=== PATIENT | female | born 1995 | race Caucasian/White ===

== ENCOUNTER 2017-12-07 00:25 | Emergency (ER) | payer MEDICAID ==
--- NOTE | 2017-12-07 02:22 | ED Physician Documentation ---
History of Present Illness - Stated complaint Stated Complaint: FEVER - Chief complaint Chief Complaint: General - History obtained from History obtained from: Patient - History of Present Illness Timing: How many days ago (2-3) Improved by: no ameliorating factors Worsened by: ONEAL worsened by coughing - Additonal information Additional information: c/o 2-3 days of body aches, ONEAL, sinus congestion, cough. her s.o. has same symptoms (and is currently registered in this ED for same) Review of Systems Constitutional: reports: Chills, Myalgias, Sweats. denies: Fever Ears: denies: Ear pain Nose: reports: Congestion, Sinus pressure / pain Throat: denies: Sore throat Respiratory: reports: Cough : denies: Dysuria, Frequency PD PAST MEDICAL HISTORY - Past Medical History Respiratory: Asthma - Past Surgical History Past Surgical History: No - Present Medications Home Medications: Ambulatory Orders Medication Instructions Recorded Confirmed Albuterol [Ventolin Hfa] 2 puffs INH Q4H PRN #1 inhaler 08/10/13 01/16/15 Azithromycin [Zithromax] 250 mg PO DAILY #4 tablet 12/07/17 predniSONE [Prednisone] 40 mg PO DAILY #6 tablet 12/07/17 - Allergies Allergies/Adverse Reactions: Allergies Allergy/AdvReac Type Severity Reaction Status Date / Time No Known Drug Allergies Allergy Verified 12/07/17 00:34 - Social History Does the pt smoke?: No Smoking Status: Never smoker Does the pt drink ETOH?: No Does the pt have substance abuse?: No - Immunizations Immunizations are current?: Yes - POLST Patient has POLST: No PD ED PE NORMAL - Vitals Vital signs reviewed: Yes - General General: Alert and oriented X 3, No acute distress, Well developed/nourished - HEENT HEENT: Ears normal, Moist mucous membranes, Pharynx benign - Neck Neck: Supple, no meningeal sign - Cardiac Cardiac: RRR, No murmur - Respiratory Respiratory: No respiratory distress, Clear bilaterally Results - Vitals Vitals: Oxygen O2 Source Room air PD MEDICAL DECISION MAKING - ED course Complexity details: considered differential, d/w patient - Sepsis Event Vital Signs: Oxygen O2 Source Room air Departure - Departure Disposition: 01 Home, Self Care Clinical Impression: Bronchitis Sinusitis Qualifiers: Sinusitis location: unspecified location Chronicity: acute Recurrence: not specified as recurrent Qualified Code(s): J01.90 - Acute sinusitis, unspecified Condition: Good Instructions: ED Upper Resp Infec Abx Tx, ED Sinusitis Abx Tx Prescriptions: Azithromycin [Zithromax] 250 mg PO DAILY #4 tablet predniSONE [Prednisone] 40 mg PO DAILY #6 tablet Forms: Activity restrictions Discharge Date/Time: 12/07/17 03:10
[2017-12-07] MEDS ORDERED: AZITHROMYCIN 250 MG TABLET PO STA (02:40)
[2017-12-07] MEDS ORDERED: DEXAMETHASONE 10 MG/ML VIAL PO STA (02:40)
[2017-12-07 04:47] VITALS: BP 131/74
== END 2017-12-07 03:10 | disposition home or self-care (01) ==
LOC: ED 00:25
DX: J01.90 Acute sinusitis, unspecified (principal); J40 Bronchitis, not specified as acute or chronic
CPT/HCPCS: 99283; A9270

== ENCOUNTER 2018-06-18 12:00 | Emergency (ER) | payer MEDICAID ==
[2018-06-18 15:57] VITALS: BP 150/79
[2018-06-18] MEDS ORDERED: BENZOCAINE/MENTHOL LOZENGE MM STA (16:31)
[2018-06-18] MEDS ORDERED: BENZONATATE 100 MG CAPSULE PO STA (16:31)
[2018-06-18] MEDS ORDERED: DEXAMETHASONE 10 MG/ML VIAL PO STA (16:31)
--- NOTE | 2018-06-18 16:36 | ED Physician Documentation ---
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 denies: Fever Nose: reports: Congestion Throat: reports: Sore throat Respiratory: reports: Cough GI: reports: Vomiting Neurologic: reports: Headache Endocrine: denies: Easy bruising / bleeding Immunocompromised: denies: Immunocompromised PD PAST MEDICAL HISTORY - Past Medical History Past Medical History: No Cardiovascular: None Respiratory: Asthma Neuro: None Endocrine/Autoimmune: None GI: None RODBUSTER: None : None HEENT: None Psych: None Musculoskeletal: None Derm: None - Past Surgical History Past Surgical History: No - Present Medications Home Medications: Ambulatory Orders Medication Instructions Recorded Confirmed Albuterol [Ventolin Hfa] 2 puffs INH Q4H PRN #1 inhaler 08/10/13 01/16/15 Azithromycin [Zithromax] 250 mg PO DAILY #4 tablet 12/07/17 predniSONE [Prednisone] 40 mg PO DAILY #6 tablet 12/07/17 Benzonatate [Tessalon Perle] 100 mg PO TID PRN #20 capsule 06/18/18 Dextromethorphan/Benzocaine 1 each PO Q4H PRN #20 lozenge 06/18/18 [Cepacol Sorethroat-Cough Santana] Fluticasone [Flonase] 1 sprays SHERIE BID #1 bottle 06/18/18 - Allergies Allergies/Adverse Reactions: Allergies Allergy/AdvReac Type Severity Reaction Status Date / Time No Known Drug Allergies Allergy Verified 06/18/18 12:22 - Social History Does the pt smoke?: No Smoking Status: Never smoker Does the pt drink ETOH?: Yes Does the pt have substance abuse?: Yes Substance Use and Type: Marijuana - Immunizations Immunizations are current?: Yes - POLST Patient has POLST: No PD ED PE NORMAL - Vitals Vital signs reviewed: Yes - HEENT HEENT: Ears normal, Moist mucous membranes. No: Pharynx benign (enlarge erythematous tonsils with exudate) - Neck Neck: Supple, no meningeal sign - Cardiac Cardiac: RRR - Respiratory Respiratory: No respiratory distress, Clear bilaterally - Abdomen Abdomen: Soft, Non tender - Derm Derm: Normal color - Neuro Neuro: Alert and oriented X 3 Results - Vitals Vitals: Vital Signs - 24 hr 06/18/18 06/18/18 12:18 15:56 Temperature 36.4 C L Heart Rate 86 88 Respiratory 18 20 Rate Blood Pressure 122/73 150/79 H O2 Saturation 98 98 Oxygen O2 Source Room air - Labs Labs: Laboratory Tests 06/18/18 06/18/18 12:27 12:27 Influenza A (Rapid) Negative Influenza B (Rapid) Negative Group A Strep Rapid Negative Departure - Departure Disposition: Home, Self Care Clinical Impression: Viral syndrome Condition: Good Instructions: ED Viral Syndrome Prescriptions: Benzonatate [Tessalon Perle] 100 mg PO TID PRN #20 capsule PRN Reason: Cough Dextromethorphan/Benzocaine [Cepacol Sorethroat-Cough Santana] 1 each PO Q4H PRN #20 lozenge PRN Reason: sore throat cough Fluticasone [Flonase] 1 sprays SHERIE BID #1 bottle Comments: The flu swabs were again negative You already had a chest xray that did not show pneumonia The rapid strep was negative too - an official throat culture will be run and the ER staff will call you if it is positive and you need antibiotics I have prescribed medication to ease symptoms. And written a note for work Please get your blood pressure rechecked when you feel better Forms: Activity restrictions
[2018-06-18] MEDS ORDERED: CHERRY SYRUP 10 ML UDC PO ONE (16:40)
== END 2018-06-18 16:47 | disposition home or self-care (01) ==
LOC: ED 12:00
DX: B34.9 Viral infection, unspecified (principal)
CPT/HCPCS: 87070; 87275; 87276; 87430; 99283; A9270

== ENCOUNTER 2021-04-15 14:29 | Emergency (ER) | payer MEDICAID ==
[2021-04-15] MEDS ORDERED: SODIUM CHLORIDE 0.9% 1,000 ML IV STA (15:03)
[2021-04-15] MEDS ORDERED: ONDANSETRON 4 MG/2 ML VIAL IVP STA (15:16)
[2021-04-15] MEDS ORDERED: HYDROmorphone 1 MG/ML CARPUJECT IVP STA (15:16)
--- NOTE | 2021-04-15 15:20 | ED Physician Documentation ---
History of Present Illness - Stated complaint Stated Complaint: FEVER/VOMITING - Chief complaint Chief Complaint: Abd Pain - Additonal information Additional information: 25-year-old female presents emergency department for evaluation of 2 weeks intermittent high fever as well as 1 week periumbilical abdominal pain with nausea and vomiting. She is not yet vaccinated for COVID-19. She reports that about 2 weeks ago she began having a minor cough with low-grade fevers however over the last week she began having periumbilical pain with vomiting. Denies any dysuria urgency or frequency. No diarrhea. T-max 101.9 yesterday afternoon. No pertinent past surgical history. Past medical history significant only for asthma for which she takes but desonide as well as albuterol. Reports her son has been sick with what she thinks is the common cold. Denies any tobacco or alcohol use. Review of Systems Constitutional: reports: Fever, Myalgias, Fatigue Eyes: reports: Reviewed and negative Ears: reports: Reviewed and negative Nose: reports: Rhinorrhea / runny nose, Congestion Throat: reports: Reviewed and negative Cardiac: denies: Chest pain / pressure, Palpitations, Pedal edema, Calf pain Respiratory: denies: Dyspnea, Cough, Hemoptysis, Wheezing GI: reports: Abdominal Pain, Nausea, Vomiting. denies: Diarrhea, Hematemesis, Bloody / black stool : denies: Dysuria, Frequency, Hesitancy Skin: denies: Rash, Lesions Musculoskeletal: denies: Neck pain, Back pain, Extremity pain Neurologic: reports: Reviewed and negative PD PAST MEDICAL HISTORY - Past Medical History Cardiovascular: None Respiratory: Asthma Neuro: None Endocrine/Autoimmune: None GI: None NITROGLYCERIN DISTRIBUTOR: None : None HEENT: None Psych: None Musculoskeletal: None Derm: None - Past Surgical History Past Surgical History: No - Present Medications Home Medications: Ambulatory Orders Medication Instructions Recorded Confirmed Albuterol [Ventolin Hfa] 2 puffs INH Q4H PRN #1 inhaler 08/10/13 04/15/21 Cefpodoxime Proxetil [Vantin] 100 mg PO Q12H #14 tablet 04/15/21 Ondansetron Odt [Zofran] 4 mg TL Q6H PRN #10 tablet 04/15/21 - Allergies Allergies/Adverse Reactions: Allergies Allergy/AdvReac Type Severity Reaction Status Date / Time No Known Drug Allergies Allergy Verified 04/15/21 14:33 - Social History Does the pt smoke?: No Smoking Status: Never smoker Does the pt drink ETOH?: Yes Does the pt have substance abuse?: Yes - Immunizations Immunizations are current?: Yes - POLST Patient has POLST: No PD ED PE EXPANDED - General General: Alert, Other (appears ill appearing) - Neck Neck: Supple w/out meningeal sx. No: Adenopathy - Cardiac Cardiac: Regular Rate, Radial strong equal, Cap refill < 2 sec, Prolonged cap refill. No: Murmur Present - Respiratory Respiratory: Clear to ausultation stephanie. No: Distress, Labored - Abdomen Abdomen: Normal Bowel sounds, Tender to palpation, Periumbilical (Periumbilical abdominal pain without guarding or rebound. Negative Ramirez's negative McBurney's. No flank or CVA tenderness elicited.) - Derm Derm: Normal color, Warm and dry. No: Rash - Neuro Neuro: Alert and Oriented X 3, CNII-XII intact - GCS Eye Opening: Spontaneous Motor: Obeys Commands Verbal: Oriented Total: 15 Results - Vitals Vitals: Vital Signs - 24 hr 04/15/21 04/15/21 04/15/21 14:34 14:48 15:18 Temperature 37.8 C 37.5 C 37.5 C Heart Rate 110 H 104 H 98 Respiratory 16 16 16 Rate Blood Pressure 130/66 116/60 125/75 O2 Saturation 96 99 99 04/15/21 04/15/21 04/15/21 15:30 16:00 16:30 Temperature 37.6 C 37.3 C Heart Rate 104 H 94 95 Respiratory 16 16 16 Rate Blood Pressure 115/75 117/64 110/61 O2 Saturation 98 94 96 04/15/21 04/15/21 17:00 17:30 Temperature 37.4 C 37.9 C Heart Rate 95 96 Respiratory 16 16 Rate Blood Pressure 116/64 123/63 O2 Saturation 95 96 Oxygen O2 Source Room air - Labs Labs: Laboratory Tests 04/15/21 04/15/21 04/15/21 14:58 14:58 15:10 WBC 15.8 H RBC 4.45 Hgb 12.9 Hct 39.4 MCV 88.5 MCH 29.0 MCHC 32.7 RDW 12.9 Plt Count 416 MPV 9.8 Neut # (Auto) 12.4 H Lymph # (Auto) 1.9 Pettis # (Auto) 1.3 H Eos # (Auto) 0.0 Baso # (Auto) 0.1 Absolute Nucleated RBC 0.00 Nucleated RBC % 0.0 Sodium Potassium Chloride Carbon Dioxide Anion Gap BUN Creatinine Estimated GFR (MDRD) Glucose Lactic Acid Calcium Total Bilirubin AST ALT Alkaline Phosphatase Total Protein Albumin Globulin Albumin/Globulin Ratio Urine Color YELLOW Urine Clarity HAZY Urine pH 6.0 Ur Specific Henrietta 1.020 Urine Protein TRACE Urine Glucose (UA) NEGATIVE Urine Ketones >=80 H Urine Occult Blood TRACE-INTA Urine Nitrite POSITIVE H Urine Bilirubin NEGATIVE Urine Urobilinogen 0.2 (NORMAL) Ur Leukocyte Esterase TRACE H Urine RBC 6-10 H Urine WBC >25 H Ur Squamous Epith Cells MANY Squamous H Urine Bacteria Many H Urine Culture Comments NOT INDICATED Urine HCG, Qual NEGATIVE Nasal Adenovirus (PCR) Nasal B. parapertussis DNA (PCR) Nasal Coronavir 229E PCR Nasal Coronavir HKU1 PCR Nasal Coronavir NL63 PCR Nasal Coronavir OC43 PCR Nasal Enterovir/Rhinovir PCR Nasal Influenza B PCR Nasal Influenza A PCR Nasal Parainfluen 1 PCR Nasal Parainfluen 2 PCR Nasal Parainfluen 3 PCR Nasal Parainfluen 4 PCR Nasal RSV (PCR) Nasal B.pertussis DNA PCR Nasal C.pneumoniae (PCR) Gibran Human Metapneumo PCR Nasal M.pneumoniae (PCR) Nasal SARS-CoV-2 (PCR) 04/15/21 04/15/21 04/15/21 15:10 15:10 15:10 WBC RBC Hgb Hct MCV MCH MCHC RDW Plt Count MPV Neut # (Auto) Lymph # (Auto) Pettis # (Auto) Eos # (Auto) Baso # (Auto) Absolute Nucleated RBC Nucleated RBC % Sodium 138 Potassium 3.6 Chloride 97 L Carbon Dioxide 26 Anion Gap 15.0 H BUN 12 Creatinine 0.7 Estimated GFR (MDRD) 103 Glucose 93 Lactic Acid 0.9 Calcium 9.4 Total Bilirubin 0.9 AST 19 ALT 30 Alkaline Phosphatase 81 Total Protein 8.5 H Albumin 3.9 Globulin 4.6 H Albumin/Globulin Ratio 0.8 L Urine Color Urine Clarity Urine pH Ur Specific Henrietta Urine Protein Urine Glucose (UA) Urine Ketones Urine Occult Blood Urine Nitrite Urine Bilirubin Urine Urobilinogen Ur Leukocyte Esterase Urine RBC Urine WBC Ur Squamous Epith Cells Urine Bacteria Urine Culture Comments Urine HCG, Qual Nasal Adenovirus (PCR) NOT DETECTED Nasal B. parapertussis DNA (PCR) NOT DETECTED Nasal Coronavir 229E PCR NOT DETECTED Nasal Coronavir HKU1 PCR NOT DETECTED Nasal Coronavir NL63 PCR NOT DETECTED Nasal Coronavir OC43 PCR NOT DETECTED Nasal Enterovir/Rhinovir PCR NOT DETECTED Nasal Influenza B PCR NOT DETECTED Nasal Influenza A PCR NOT DETECTED Nasal Parainfluen 1 PCR NOT DETECTED Nasal Parainfluen 2 PCR NOT DETECTED Nasal Parainfluen 3 PCR NOT DETECTED Nasal Parainfluen 4 PCR NOT DETECTED Nasal RSV (PCR) NOT DETECTED Nasal B.pertussis DNA PCR NOT DETECTED Nasal C.pneumoniae (PCR) NOT DETECTED Gibran Human Metapneumo PCR NOT DETECTED Nasal M.pneumoniae (PCR) NOT DETECTED Nasal SARS-CoV-2 (PCR) NOT DETECTED - Rads (name of study) CT abdomen Radiology: Final report received (Left-sided pyelonephritis. Prominent gallbladder without discrete pathology. Incidental note is made of IUD.) PD MEDICAL DECISION MAKING - ED course Complexity details: reviewed results, re-evaluated patient, d/w patient ED course: 25-year-old female presents emergency department for evaluation of intermittent fevers that have been ongoing for about 2 weeks as well as nausea and vomiting. She began having some periumbilical pain about 1 week ago. She reports to me that it was she was seen at [facility] about 5 days ago but had an unremarkable work-up. Here in the ER today she is noted to have moderate leukocytosis without an elevated lactate. However her urine is grossly suggestive of an infection. Blood cultures are pending. There are no findings of infection in the chest x- ray. Given the intermittent fevers for 2 weeks as well as abdominal pain a CT of the abdomen was completed. It is suggestive of left-sided pyelonephritis. While the patient was here in the emergency department she did receive a call from [facility] telling her that she had grown a page sensitive E. coli. A prescription for Macrobid was sent to the [facility] in [place]. I then called the provider that saw her at the hospital in [place] on Monday and we discussed her. She at that time did not have any findings suggestive of pyelonephritis. At this time I will send a prescription for Cefpodoxime given that was a pansensitive Sathya. I will also send a prescription for Zofran to help with the nausea. Emergent return precautions were discussed for failure of the symptoms to resolve. Departure - Departure Disposition: 01 Home, Self Care Clinical Impression: Pyelonephritis Condition: Stable Record reviewed to determine appropriate education?: Yes Instructions: Pyelonephritis [facility] Prescriptions: Cefpodoxime Proxetil [Vantin] 100 mg PO Q12H #14 tablet Ondansetron Odt [Zofran] 4 mg TL Q6H PRN #10 tablet PRN Reason: Nausea / Vomiting Comments: Lisa you were seen in the emergency department today for abdominal pain, intermittent fevers as well as nausea and vomiting. Today your screening labs do show that you have an infection in your urine. You also have a mildly elevated white blood cell count that is usually seen with infections. A CT of the abdomen however does show that you have an infection around your left kidney. This is called pyelonephritis. In most people that are young and otherwise healthy pyelonephritis can typically be treated as an outpatient. You were given IV fluids as well as a first dose of IV antibiotics here in the ER. I have sent a prescription for an antibiotic called Cefpodoxime to the [facility] in [place]. I have also sent a prescription for some nausea medicine. [facility] has sent a prescription for an antibiotic called Macrobid also known as nitrofurantoin. This is not an appropriate antibiotic in the setting of kidney infection, therefore please do not fill it or take it. I encourage you to stay well-hydrated and drink plenty of fluids. If you find you are having worsening symptoms, persistence of fevers uncontrolled vomiting despite the antibiotics and nausea medicine then please return immediately to the ER for a second evaluation.
--- NOTE | 2021-04-15 15:21 | XRAY Report ---
PROCEDURE: Chest 1 View X-Ray INDICATIONS: fever x 2 weeks TECHNIQUE: One view of the chest was acquired. COMPARISON: None FINDINGS: Surgical changes and devices: None. Lungs and pleura: No pleural effusions or pneumothorax. Lungs are clear. Mediastinum: Mediastinal contours appear normal. Heart size is normal. Bones and chest wall: No suspicious bony lesions. Overlying soft tissues appear unremarkable. IMPRESSION: No acute pulmonary process. Reviewed by: Jenn Sutton MD on 04/15/2021 3:19 PM [facility] Approved by: Jenn Sutton MD on 04/15/2021 3:19 PM [facility] Station ID: [id number]
[2021-04-15 15:27] LABS: BASOPHILS # (AUTO) 0.1 10^3/uL (0.0-0.1); BASOPHILS % (AUTO) 0.5 %; EOSINOPHILS % (AUTO) 0.2 %; HCT - HEMATOCRIT 39.4 % (37.0-47.0); HGB - HEMOGLOBIN 12.9 g/dL (12.0-16.0); LYMPHOCYTES # (AUTO) 1.9 10^3/uL (1.5-3.5); MEAN CORPUSCULAR HGB CONC 32.7 g/dL (32.0-36.0); MEAN CORPUSCULAR VOLUME 88.5 fL (81.0-99.0); MEAN PLATELET VOLUME 9.8 fL (7.9-10.8); MONOCYTES # (AUTO) 1.3 10^3/uL (0.0-1.0); MONOCYTES % (AUTO) 8.1 %; NEUTROPHILS # (AUTO) 12.4 10^3/uL (1.5-6.6); NEUTROPHILS % (AUTO) 78.6 %; PLT - PLATELET COUNT 416 10^3/uL (130-450); RED BLOOD COUNT 4.45 10^6/uL (4.20-5.40); RED CELL DISTRIBUTION WIDTH 12.9 % (12.0-15.0); WHITE BLOOD COUNT 15.8 x10^3/uL (4.8-10.8)
[2021-04-15 15:38] LABS: ALBUMIN 3.9 g/dL (3.2-5.5); ALBUMIN/GLOBULIN RATIO 0.8 (1.0-2.2); BILIRUBIN,TOTAL 0.9 mg/dL (0.2-1.0); CALCIUM 9.4 mg/dL (8.5-10.3); CREATININE 0.7 mg/dL (0.4-1.0); POTASSIUM 3.6 mmol/L (3.5-5.0); TOTAL PROTEIN 8.5 g/dL (6.7-8.2)
[2021-04-15 15:42] LABS: BILIRUBIN,URINE NEGATIVE (NEGATIVE); GLUCOSE, URINE (UA) NEGATIVE (NEGATIVE); KETONES,URINE (UA) >=80 mg/dL (NEGATIVE); LEUKOCYTE ESTERASE, URINE TRACE (NEGATIVE); NITRITE,URINE POSITIVE (NEGATIVE); OCCULT BLOOD,URINE TRACE-INTA (NEGATIVE); PROTEIN,URINE TRACE mg/dL (NEGATIVE); UROBILINOGEN,URINE 0.2 (NORMAL) E.U./dL (NORMAL)
[2021-04-15 15:50] LABS: BACTERIA,URINE Many /HPF (None Seen); CLARITY,URINE HAZY (CLEAR); HCG UR QUAL NEGATIVE; SQUAMOUS EPITHELIAL CELL,UR MANY Squamous (<= Few); WBC,URINE >25 /HPF (0-5)
[2021-04-15] MEDS ORDERED: cefTRIAXone 1 GM VIAL IVP STA (16:14)
[2021-04-15] MEDS ORDERED: IOVERSOL 320 100 ML VIAL IVP ONE ×2 (16:17→17:11)
[2021-04-15 16:42] LABS: B. PARAPERTUSSIS- RESP PCR PAN NOT DETECTED; B. PERTUSSIS- RESP PCR PANEL NOT DETECTED; C. PNEUMONIAE- RESP PCR PANEL NOT DETECTED; CORONAVIRUS 229E-RESP PCR NOT DETECTED; CORONAVIRUS HKU1-RESP PCR NOT DETECTED; CORONAVIRUS NL63-RESP PCR NOT DETECTED; CORONAVIRUS OC43-RESP PCR NOT DETECTED; HUMAN METAPNEUMOVIRUS NOT DETECTED; INFLUENZA A- RESP PCR PANEL NOT DETECTED; INFLUENZA B - RESP PCR PANEL NOT DETECTED; M. PNEUMONIAE- RESP PCR PANEL NOT DETECTED; PARAINFLUENZA VIRUS 1 NOT DETECTED; PARAINFLUENZA VIRUS 2 NOT DETECTED; PARAINFLUENZA VIRUS 3 NOT DETECTED; PARAINFLUENZA VIRUS 4 NOT DETECTED; RHINOVIRUS/ENTEROVIRUS NOT DETECTED; RSV- RESP PCR PANEL NOT DETECTED; SARS-CoV-2 -RESP PCR PANEL NOT DETECTED
--- NOTE | 2021-04-15 17:35 | CT Report ---
PROCEDURE: Abdomen/Pelvis W INDICATIONS: periumbilical abdominal pain/vomiting CONTRAST: IV CONTRAST: Optiray 320 ml: 100 PO CONTRAST: *NO PO CONTRAST TECHNIQUE: After the administration of IV contrast, 5 mm thick sections acquired from the diaphragms to the symp hysis. 5 mm thick coronal and sagittal reformats were acquired. For radiation dose reduction, the f ollowing was used: automated exposure control, adjustment of mA and/or kV according to patient size. COMPARISON: None. FINDINGS: Image quality: Excellent. ABDOMEN: Lung bases: Lung bases are clear. Heart size is normal. Solid organs: Liver and spleen are normal in size and enhancement. Gallbladder demonstrates promine nt size, without surrounding fatty stranding or wall thickening. No pericholecystic fluid is seen. B iliary system is non dilated. Pancreas enhances normally. No adrenal nodules. The kidneys demonstrate normal size. Within several areas of the right kidney, although worst posteri yosi and superiorly, there is wedge-shaped poor enhancement. There is no hydronephrosis on either russell e. Minimal left-sided perinephric fat stranding can be seen. Peritoneum and bowel: Bowel loops demonstrate normal wall thickness and caliber. No free fluid or a ir. Minimal sigmoid diverticulosis can be seen, without carissa findings of active diverticulitis. Nodes and vessels: No retroperitoneal or mesenteric adenopathy by size criteria. Aorta and inferior vena cava are normal in size. Miscellaneous: No ventral hernias. PELVIS: Genitourinary: Bladder wall thickness is normal. An IUD is seen at the expected location. Miscellaneous: No inguinal hernias or adenopathy. Bones: No suspicious bony lesions. No vertebral body compression fractures. IMPRESSION: These imaging findings are highly concerning for left-sided pyelonephritis. Prominent gallbladder, without discrete pathology identified. Incidental note is made of: IUD Minimal diverticulosis, without diverticulitis. Reviewed by: Dinesh Chiu MD on 04/15/2021 4:33 PM [facility] Approved by: Dinesh Chiu MD on 04/15/2021 4:33 PM [place] Station ID: [id number]
[2021-04-15 18:08] VITALS: BP 116/63
== END 2021-04-15 18:24 | disposition home or self-care (01) ==
LOC: ED 14:29
DX: N12 Tubulo-interstitial nephritis, not specified as acute or chronic (principal); J45.909 Unspecified asthma, uncomplicated
CPT/HCPCS: 0202U; 36415; 71045; 74177; 80053; 81001; 81025; 83605; 85025; 87040; 96374; 96375; 99284; J1170; Q9967; 87086